=== PATIENT | female | born 1980 | race Caucasian/White ===

== ENCOUNTER → 2016-10-27 | Outpatient (CLI) | payer MEDICARE, OTHER ==
--- NOTE | 2016-10-27 10:51 | US ---
EXAMINATION TYPE: US pelvic complete DATE OF EXAM: 10/27/2016 9:59 AM COMPARISON: No previous CLINICAL HISTORY: Abn Clincial Findings R68.89 Possible Ovarian Cyst. Intermittent left pelvic pain x 1 year, 2, para 2 TECHNIQUE: Transabdominal (TA) Date of LMP: 10/08/2016 EXAM MEASUREMENTS: Uterus: 8.9 x 4.1 x 5.9 cm Endometrial Stripe: 1.0 cm Right Ovary: 3.0 x 1.8 x 3.1 cm Left Ovary: 2.5 x 1.6 x 1.6 cm TECHNOLOGIST IMPRESSION: 1. Uterus: Anteverted, slightly hetergeneous echotexture without any definite lesions seen at this t rosendo, nabothian cyst 2. Endometrium: wnl for patient's menstrual cycle, IUD seen in place 3. Right Ovary: multiple follicles 4. Left Ovary: multiple follicles 5. Bilateral Adnexa: wnl 6. Posterior cul-de-sac: small amount of free fluid An IUCD is noted in normal position within the uterus. IMPRESSION: NORMAL PELVIC ULTRASOUND.
== END | disposition home or self-care (01) ==
LOC: RADUSWWP 09:39
PROVIDERS: ATTEND Obstetrics & Gynecology
DX: R68.89 Other general symptoms and signs (principal)
CPT/HCPCS: 76856

== ENCOUNTER → 2017-01-10 | Outpatient (CLI) | payer MEDICARE, OTHER ==
--- NOTE | 2017-01-10 09:51 | CT ---
EXAMINATION TYPE: CT abdomen pelvis wo con DATE OF EXAM: 01/10/2017 9:27 AM COMPARISON: 03/28/2011 HISTORY: RUQ pain, change in bowel habits CT DLP: 464 mGycm FINDINGS: LUNG BASES: No evidence for nodule. No evidence for infiltrate. LIVER/GB: There is been cholecystectomy. No space-occupying hepatic lesion. PANCREAS: No pancreatic mass identified. No inflammatory process seen. SPLEEN: No evidence for splenomegaly. No intrasplenic lesions seen. ADRENALS: No adrenal nodules identified. No evidence for thickening. KIDNEYS: Stable cystic lesion right kidney measuring 9 mm. No nephrolithiasis. No hydronephrosis. BOWEL: Appendix has a normal appearance. No evidence of bowel obstruction. Suggestion of gastric wall thickening. Correlate clinically. Lymph nodes: No evidence for adenopathy greater than 1 cm. Abdominal aorta: Atheromatous changes seen. No evidence for aneurysm. Genital organs: IUD is in place. No evidence for adnexal mass. Other: No significant abnormality. IMPRESSION: 1. SUGGESTION OF DISTAL GASTRIC WALL THICKENING. CONSIDER UPPER GI OR DIRECT VISUALIZATION.
== END | disposition home or self-care (01) ==
LOC: RADCTMAIN 09:11
PROVIDERS: ATTEND Family Medicine
DX: R10.11 Right upper quadrant pain (principal); R19.4 Change in bowel habit
CPT/HCPCS: 74176

== ENCOUNTER 2017-02-02 09:01 | Day surgery (SDC) | payer MEDICARE, OTHER ==
[2017-02-01 13:23] VITALS: BMI 16.1
[~2017-02-02 09:01] MED LIST: LACTATED RINGERS 1,000 ML IV SCH; LIDOCAINE 1% 20 ML VIAL (10MG/ML) FOR IV START INTRADERMA PRN
[2017-02-02 10:03] VITALS: RESP 18; TEMP 98
[2017-02-02] MEDS ORDERED: LACTATED RINGERS 1,000 ML IV ONE (10:07)
[2017-02-02] MEDS ORDERED: PROPOFOL 10 MG/ML 20 ML VIAL IV ONE (10:21)
--- NOTE | 2017-02-02 10:35 | P.GSHP ---
History of Present Illness H&P Date: 02/02/17 Chief Complaint: Epigastric and right upper quadrant pain, change in bowel habits This is a 36-year-old female referred from Dr. Levy. Patient presents today for EGD colonoscopy. She's had complaints of epigastric port quadrant pain. She is also a change in bowel habits with constipation. - Constitutional Constitutional: Reports as per HPI Past Medical History Past Medical History: Asthma, Fibromyalgia, GERD/Reflux, Osteoarthritis (OA) Additional Past Medical History / Comment(s): currently having alternating constipation,diarrhea,occas heart burn,Hx Carpal Tunnel History of Any Multi-Drug Resistant Organisms: None Reported Past Surgical History: Cholecystectomy Additional Past Surgical History / Comment(s): D&C ,EGD,COLONOSCOPY, LEEP procedure to cervix. Past Anesthesia/Blood Transfusion Reactions: Motion Sickness Additional Past Anesthesia/Blood Transfusion Reaction / Comment(s): no hx blood transfusion Past Psychological History: Anxiety, Bipolar, Depression, Panic Disorder Additional Psychological History / Comment(s): psychosis w/first 9 yrs. ago Smoking Status: Current every day smoker Past Alcohol Use History: Rare Additional Past Alcohol Use History / Comment(s): 1ppd Past Drug Use History: None Reported - Past Family History Father Family Medical History: Liver Disease Additional Family Medical History / Comment(s): Hep C Mother Family Medical History: Cancer Brother(s) Additional Family Medical History / Comment(s): Schizophrenia Medications and Allergies Home Medications Medication Instructions Recorded Confirmed Type Cyclobenzaprine [Flexeril] 10 mg PO TID PRN 12/09/15 02/01/17 History LORazepam [Ativan] 2 mg PO BID PRN 12/09/15 02/02/17 History Albuterol Inhaler [Ventolin Hfa 1 - 2 puff INHALATION Q6HR PRN 03/23/16 History Inhaler] HYDROcodone/APAP 7.5-325MG [[place] 1 tab PO Q6HR PRN 03/23/16 02/02/17 History 7.5-325] Ibuprofen [Motrin] 400 mg PO Q6HR PRN 02/01/17 02/01/17 History Loratadine [Claritin] 10 mg PO DAILY 02/01/17 02/01/17 History Mometasone Furoate [Nasonex Nasal 1 - 2 spray EA NOSTRIL DAILY 02/01/17 History [place]] Allergies Allergy/AdvReac Type Severity Reaction Status Date / Time artifical sweeteners AdvReac Vomiting Uncoded 02/01/17 13:14 Surgical - Exam Vital Signs Temp Pulse Resp BP Pulse Ox 98.0 F 64 18 106/71 98 02/02/17 10:00 02/02/17 10:00 02/02/17 10:00 02/02/17 10:00 02/02/17 10:00 - General well developed, no distress - Eyes PERRL - ENT normal pinna - Neck no masses - Respiratory normal expansion - Cardiovascular Rhythm: regular - Abdomen Mild epigastric tenderness Abdomen: soft Assessment and Plan Plan: Epigastric dull pain, right quadrant pain constipation we'll perform EGD and colonoscopy
--- NOTE | 2017-02-02 10:52 | P.OP ---
Date of Procedure: 02/02/17 Preoperative Diagnosis: Right upper quadrant pain, epigastric pain, constipation Postoperative Diagnosis: Antral gastritis Small hiatal hernia Mild esophagitis Normal colon Procedure(s) Performed: EGD Colonoscopy Implants: Anesthesia: MAC Surgeon: Forrest Florian Pathology: other (Antrum, esophagus) Condition: stable Disposition: PACU Indications for Procedure: Operative Findings: Description of Procedure: PROCEDURE: The patient was placed on the endoscopy table in the lateral position. Digital rectal examination was performed which revealed no abnormalities. Flexible colonoscope was then placed in the patient's anus and passed throughout the entire colon. The ileocecal valve was visualized. The cecum, ascending, transverse, descending and sigmoid colon were normal. The rectum was normal as well. There were no masses, polyps or diverticula noted in the entire colon. Next, the gastroscope was placed oropharynx passed in the esophagus into the stomach. The scope was then placed through the pylorus. The first and second portion of the duodenum appeared normal. Scope was then brought back the antrum and this appeared mildly inflamed. A biopsies performed. The scope was unretroflexed and the remainder of the stomach appeared normal. There was a small hiatal hernia. The GE junction was at 40 cm.. The distal esophagus appeared mildly inflamed a biopsies performed. The proximal esophagus was Normal. Scope was withdrawn for patient.
[2017-02-02 11:24] VITALS: BP 102/66; PULSE 59
== END 2017-02-02 11:38 | disposition home or self-care (01) ==
LOC: ORWHC2ENDO 09:01
PROVIDERS: ATTEND Surgery
DX: K21.0 Gastro-esophageal reflux disease with esophagitis (principal); R19.4 Change in bowel habit; R10.13 Epigastric pain; R10.11 Right upper quadrant pain; K29.50 Unspecified chronic gastritis without bleeding; K44.9 Diaphragmatic hernia without obstruction or gangrene; J45.909 Unspecified asthma, uncomplicated; F17.200 Nicotine dependence, unspecified, uncomplicated; M79.7 Fibromyalgia; Z79.1 Long term (current) use of non-steroidal anti-inflammatories (NSAID); Z79.891 Long term (current) use of opiate analgesic; Z79.899 Other long term (current) drug therapy
CPT/HCPCS: 81025; 88305; 88342; 45378; 43239; J2704

== ENCOUNTER → 2017-06-01 | Outpatient (CLI) | payer MEDICARE, OTHER ==
--- NOTE | 2017-06-01 16:57 | US ---
EXAMINATION TYPE: US pelvic complete DATE OF EXAM: 06/01/2017 COMPARISON: US 10/2016 CLINICAL HISTORY: Z97.[address] Pelvic pain TECHNIQUE: Transabdominal (TA) Date of LMP: 05/21/2017 EXAM MEASUREMENTS: Uterus: 8.2 x 4.2 x 4.0 cm Endometrial Stripe: 0.6 cm Right Ovary: 3.0 x 1.4 x 3.0 cm Left Ovary: 3.3 x 1.9 x 2.6 cm 1. Uterus: Anteverted wnl 2. Endometrium: wnl, IUD visualized and appears in good position 3. Right Ovary: Multiple follicles visualized, wnl 4. Left Ovary: Multiple follicles visualized, largest measuring 1.5 x 1.3 x 1.0 cm 5. Bilateral Adnexa: wnl 6. Posterior cul-de-sac: wnl IMPRESSION: Negative exam. IUD is in good position.
== END | disposition home or self-care (01) ==
LOC: RADUSWWP 16:12
PROVIDERS: ATTEND Obstetrics & Gynecology
DX: Z09 Encounter for follow-up examination after completed treatment for conditions other than malignant neoplasm (principal); Z97.5 Presence of (intrauterine) contraceptive device
CPT/HCPCS: 76856

== ENCOUNTER → 2017-11-24 | Outpatient (CLI) | payer MEDICARE, OTHER ==
--- NOTE | 2017-11-25 10:28 | XR ---
Abdomen HISTORY: Pain Frontal view of the abdomen submitted, comparison to CT abdomen pelvis 01/10/2017 Lung bases are clear. There is no evident bowel obstruction or pneumoperitoneum. There is a mild spin al curvature. Surgical clips are present in the right upper quadrant. The entire pelvis is not includ ed on the exam. No evident pathologic calcification. IMPRESSION: Nonobstructive bowel gas pattern, limitations as described
== END ==
LOC: RADXRMAIN 16:16
PROVIDERS: ATTEND Family Medicine
DX: R10.0 Acute abdomen (principal)
CPT/HCPCS: 74018

== ENCOUNTER → 2018-02-08 | Outpatient (CLI) | payer MEDICARE, OTHER ==
--- NOTE | 2018-02-08 18:28 | BD ---
EXAMINATION TYPE: Axial Bone Density DATE OF EXAM: 02/08/2018 CLINICAL HISTORY: : no Height: 65 inches Weight: 95 pounds FRAX RISK QUESTIONS: Alcohol (3 or more units per day): no Family History (Parent hip fracture): no Glucocorticoids (More than 3mos): yes, inhaler...rarely uses (Ex: prednisone, prednisolone, methylprednisolone, dexamethasone, and hydrocortisone). History of Fracture in Adulthood: no Secondary Osteoporosis: 1. Type 1 Diabetes: no 2. Hyperthyroidism: no 3. Menopause before 45: n/a 4. Malnutrition: thin 5. Chronic liver disease: no Rheumatoid Arthritis: no Current Tobacco Use: yes RISK FACTORS HISTORY OF: Family History of Osteoporosis: no Active: no Diet low in dairy products/other sources of calcium: no Postmenopausal woman: no If Premenopausal, do you have irregular periods: no Take estrogen and/or progesterone medications: no Lost more than 2 inches in height since high school: no Frequent falls: no Poor Health: no Hyperparathyroidism: no Adrenal Insufficiency: no MEDICATIONS: Prednisone or other steroids: inhaler....very rarely How Long: about 15 years Thyroid Medications: no Osteoporosis Medications:no Additional History: low vitamin D; thin body habitus; EXAM MEASUREMENTS: Bone mineral densitometry was performed using the nTAG Interactive System. Bone mineral density as measured about the Lumbar spine is: ----- L1-L4(G/cm2): 0.979 T Score Values are as follows: ----- L2: -1.8 ----- L3: -1.6 ----- L4: -1.5 ----- L1-L4: -1.7 Bone mineral density BASELINE Bone mineral density about the R hip (g/cm2): 0.858 Bone mineral density about the L hip (g/cm2): 0.877 T Score values are as follows: -----R Neck: -1.3 -----L Neck: -1.2 -----R Total: -1.7 -----L Total: -1.6 Bone mineral density BASELINE IMPRESSION: Osteopenia (T Score between -2.5 and -1). There is slightly increased risk of fracture and the patient may be considered for treatment. Re-Screen 2-5 years. NOTE: T-SCORE=SD OF THE YOUNG ADULT MEAN.
== END | disposition home or self-care (01) ==
LOC: RADBDWWP 08:58
PROVIDERS: ATTEND Family Medicine
DX: M85.80 Other specified disorders of bone density and structure, unspecified site (principal)
CPT/HCPCS: 77080

== ENCOUNTER → 2018-04-11 | Outpatient (CLI) | payer MEDICARE, OTHER ==
[2018-04-11 16:58] LABS: Blood Urea Nitrogen 12 mg/dL (7-17)
--- NOTE | 2018-04-11 20:31 | CT ---
EXAMINATION TYPE: CT brain wo/w con DATE OF EXAM: 04/11/2018 COMPARISON: Prior MRI brain June 28, 2012. HISTORY: NEAR SYNCOPE WITH DIZZINESS and headache. CT DLP: 2017.7 mGycm Automated Exposure Control for Dose Reduction was Utilized. TECHNIQUE: CT scan of the head is performed without and with IV Contrast, patient injected with 100 m L of Isovue 300. FINDINGS: Noncontrast images show no acute intracranial hemorrhage or midline shift. The ventricles and sulci are within normal limits in size. Proctor-white matter differentiation is maintained. Postcon trast images show no suspicious enhancing intraparenchymal mass. The globes are intact and the visual ized sinuses are clear. No suspicious fluid signal is seen in mastoid air cells bilaterally. IMPRESSION: Unremarkable study. No significant change from prior MRI to account for patient's symptom s.
== END | disposition home or self-care (01) ==
LOC: RADCTMAIN 16:25
PROVIDERS: ATTEND Family Medicine
DX: R55 Syncope and collapse (principal); R51 Headache
CPT/HCPCS: 82565; 84520; 70470; 36415; Q9967

== ENCOUNTER → 2018-06-02 | Outpatient (CLI) | payer MEDICARE, OTHER ==
--- NOTE | 2018-06-03 13:45 | MR ---
EXAMINATION TYPE: MR brain wo con DATE OF EXAM: 06/02/2018 COMPARISON: CT brain 04/23/2018, MRI 06/28/2012 HISTORY: tunnel vision Previous MRI on PACS CONTRAST: Performed utilizing 0 mL intravenous Gadavist gadolinium contrast. TECHNIQUE: Multiplanar, multiecho imaging on a 3.0 Cami magnet is performed through the brain. Stud y is performed within 24 hours of arrival to the hospital. The craniovertebral junction is normal. The pituitary is normal. Diffusion-weighted imaging is performed. No abnormal hyperintensity is present to suggest an acute i ntracranial infarct or acute ischemic change. There is some mild periventricular white matter hyperintensity on T2 and inversion recovery weighted sequences which is nonspecific and similar to prior study. Intravascular ischemic change and multiple sclerosis could be considered. This is similar to the prior study. Ventricles and sulci are appropriate for the patient age. Globes are symmetrical. Intraconal and extraconal fat is normal as visualized. Optic nerves as visual ized are normal. The optic chiasm is visualized is normal. IMPRESSIONS: 1. Stable MRI brain. No suspicious acute changes.
== END ==
LOC: RADMRIMAIN 11:45
PROVIDERS: ATTEND Family Medicine
DX: H53.8 Other visual disturbances (principal); G44.009 Cluster headache syndrome, unspecified, not intractable; R55 Syncope and collapse
CPT/HCPCS: 70551

== ENCOUNTER → 2018-12-18 | Outpatient (CLI) | payer MEDICARE, OTHER ==
--- NOTE | 2018-12-18 16:16 | US ---
EXAMINATION TYPE: US pelvis complete transvag DATE OF EXAM: 12/18/2018 COMPARISON: CT US 2017 CLINICAL HISTORY: N92.0 Menorrhagia. Menorrhagia. Very heavy vaginal bleeding. Hx ovarian cyst. D and C. IUD in place. TECHNIQUE: Transvaginal (TV) and Transabdominal (TA) . Transabdominal sonographic images of the pel vis were acquired. Transvaginal sonographic images were medically necessary to better assess the fol lowing anatomy: Ovaries. Date of LMP: 12/13/2018 EXAM MEASUREMENTS: Uterus: 7.9 x 7.0 x 5.2 cm Endometrial Stripe: 0.63 cm Right Ovary: 3.0 x 2.1 x 1.5 cm Left Ovary: Not visualized due to overlying bowel. cm 1. Uterus: Anteverted IUD in place in upper endometrium. Anechoic area seen cervix. 2. Endometrium: Thickness wnl for day 6 LMP. IUD seen upper endometrium/ 3. Right Ovary: Anechoic areas seen. Largest measures: 0.7 x 0.7 x 0.8 cm. 4. Left Ovary: Not visualized. Spectral, color and waveform doppler imaging shows good arterial and venous flow within the right o vary; there is no evidence for ovarian torsion of the right ovary. Left ovary obscured by bowel. 5. Bilateral Adnexa: wnl 6. Posterior cul-de-sac: wnl Tech: NW IMPRESSION: 1. IUD within the endometrial canal of uterus. 2. Nabothian cyst versus small amount of fluid within the cervical os. 3. Follicles on the right ovary
== END | disposition home or self-care (01) ==
LOC: RADUSWWP 14:04
PROVIDERS: ATTEND Family Medicine
DX: N92.0 Excessive and frequent menstruation with regular cycle (principal); Z97.5 Presence of (intrauterine) contraceptive device
CPT/HCPCS: 76830; 76856; 93976

== ENCOUNTER → 2019-02-26 | Outpatient (CLI) | payer MEDICARE, OTHER ==
[2019-02-26 22:41] LABS: ACTH 17.3 pg/mL (0.00-45.99)
== END | disposition home or self-care (01) ==
LOC: LABWHC1 09:07
PROVIDERS: ATTEND Internal Medicine Endocrinology, Diabetes & Metabolism
DX: R53.83 Other fatigue (principal)
CPT/HCPCS: 36415; 82024; 82533; 82607; 84146

== ENCOUNTER → 2019-04-11 | Outpatient (CLI) | payer MEDICARE, OTHER ==
--- NOTE | 2019-04-11 12:30 | CT ---
EXAMINATION TYPE: CT abdomen wo con DATE OF EXAM: 04/11/2019 COMPARISON: 01/10/2017 HISTORY: RLQ pain CT DLP: 118.8 mGycm Automated exposure control for dose reduction was used. TECHNIQUE: Helical acquisition of images was performed from the lung bases through the top of iliac crest to include entire abdomen. CONTRAST: Performed with Oral Contrast and 100 cc of Isovue 300. FINDINGS: LUNG BASES: No significant abnormality is appreciated. LIVER/GB: Postcholecystectomy changes are noted. PANCREAS: No significant abnormality is seen. SPLEEN: No significant abnormality is seen. ADRENALS: No significant abnormality is seen. KIDNEYS: There is a stable 8 mm hypoechoic nodule within the right kidney measures 33 Hounsfield unit s and is not compatible with a simple cyst. Its size is similar to the prior exam. Extrarenal pelvis on the right noted. BOWEL: Bowel gas pattern nonspecific with no obstruction. Small hiatal hernia suggested. LYMPH NODES: No significant abnormality is appreciated. OSSEOUS STRUCTURES: No osseous abnormality identified. OTHER: Aorta of normal caliber. Intrauterine device noted. IMPRESSION: 1. Stable 9 mm right renal lesion measures approximately 33 Hounsfield units and is not compatible wi th a simple cyst. Its size is stable compared to the prior exam. Follow-up MRI could BE obtained. Cor relate clinically. 2. Extrarenal pelvis favored over mild right-sided hydronephrosis correlate clinically
--- NOTE | 2019-04-12 10:47 | CT ---
EXAMINATION TYPE: CT abdomen pelvis w con DATE OF EXAM: 04/11/2019 HISTORY: RLQ pain CT DLP: 312.7mGycm Automated Exposure Control for Dose Reduction was Utilized. CONTRAST: CT scan of the abdomen and pelvis is performed with IV Contrast, patient injected with 100 mL of Isov ue 300. COMPARISON: CT abdomen from earlier today FINDINGS: LUNG BASES: No significant abnormality is appreciated. LIVER/GB: Cholecystectomy clips are redemonstrated. PANCREAS: No significant abnormality is seen. SPLEEN: No significant abnormality is seen. ADRENALS: No significant abnormality is seen. KIDNEYS: Postcontrast images show symmetric cortical medullary uptake and excretion from both kidneys without hydronephrosis seen bilaterally. Roughly 1.0 cm low dense lesion lower pole level right kidn ey shows no suspicious enhancement seen best delayed series 7 image 27 consistent with simple thin-wa lled cyst. No additional suspicious solid or cystic renal mass is present. Normal excretion is seen b ilaterally with extrarenal pelvis on the right redemonstrated. BOWEL: Patient is very little abdominal fat making evaluation slightly suboptimal. No suspicious sma ll large bowel dilatation. UTERUS/ADNEXA: Anteverted uterus with central metallic IUD. LYMPH NODES: No greater than 1cm abdominal or pelvic lymph nodes are appreciated. OSSEOUS STRUCTURES: No significant abnormality is seen. OTHER: No significant additional abnormality is seen. IMPRESSION: Lesion of concern right kidney shows no suspicious enhancement or nodularity. Lesion is p resumed benign.
== END | disposition home or self-care (01) ==
LOC: RADCTMAIN 10:11
PROVIDERS: ATTEND Family Medicine
DX: N28.1 Cyst of kidney, acquired (principal); N28.9 Disorder of kidney and ureter, unspecified; N13.30 Unspecified hydronephrosis
CPT/HCPCS: 74150; 74177; Q9967

== ENCOUNTER → 2019-05-08 | Outpatient (CLI) | payer MEDICARE, OTHER ==
[2019-05-08 07:51] LABS: Anisocytosis Slight; Basophils % (A) 1 %; Eosinophils # (A) 0.1 k/uL (0-0.7); Eosinophils % (A) 2 %; HCT 33.7 % (34.0-46.0); Lymphocytes # (A) 1.8 k/uL (1.0-4.8); Lymphocytes % (A) 38 %; MCH 28.1 pg (25.0-35.0); MCHC 32.5 g/dL (31.0-37.0); MCV 86.3 fL (80.0-100.0); Mean Platelet Volume 6.9; Monocytes # (A) 0.4 k/uL (0-1.0); Monocytes % (A) 8 %; Neutrophils # (A) 2.3 k/uL (1.3-7.7); Neutrophils % (A) 48 %; Platelet Count 250 k/uL (150-450); RBC 3.91 m/uL (3.80-5.40); RDW 16.1 % (11.5-15.5); WBC 4.8 k/uL (3.8-10.6)
== END | disposition home or self-care (01) ==
LOC: LABPAT 07:08
PROVIDERS: ATTEND Surgery
DX: Z01.812 Encounter for preprocedural laboratory examination (principal); K21.0 Gastro-esophageal reflux disease with esophagitis
CPT/HCPCS: 36415; 85025

== ENCOUNTER 2019-05-13 10:57 | Observation (INO) | payer MEDICARE, OTHER ==
[~2019-05-13 10:57] MED LIST changes: +DEXAMETHASONE SOD PHOSPHATE 10 MG/ML 1 ML VIAL IV ONE; +HEPARIN SODIUM,PORCINE 5,000 UNIT/ML 1 ML VIAL SQ ONE; -LACTATED RINGERS 1,000 ML IV SCH; -LIDOCAINE 1% 20 ML VIAL (10MG/ML) FOR IV START INTRADERMA PRN; +MIDAZOLAM 2 MG/2 ML VIAL IV PRN; +ONDANSETRON 4 MG/2 ML VIAL IVP ONE; +SCOPOLAMINE 1.5MG/72HR PATCH TRANSDERM ONE
--- NOTE | 2019-05-13 11:38 | P.GSHP ---
History of Present Illness H&P Date: 05/13/19 Chief Complaint: GERD This is a 3-year-old female referred from Dr. Levy. MThe patient has had long-standing problems with reflux esophagitis. The patient underwent recent EGD is found have evidence of esophagitis. Patient has been well informed on the procedure of laparoscopic Adi fundoplication. The patient is aware the risk of the conversion to the open procedure, risk of injury to the stomach, liver and spleen. The patient is also a risk of recurrent GERD and dysphagia symptoms. The patient understands there is a postoperative diet of full liquids for 2 weeks after surgery. Past Medical History Past Medical History: Asthma, Fibromyalgia, GERD/Reflux, Osteoarthritis (OA) Additional Past Medical History / Comment(s): currently having alternating constipation,diarrhea,occas heart burn,Hx Carpal Tunnel, hx ITP History of Any Multi-Drug Resistant Organisms: None Reported Past Surgical History: Cholecystectomy, Hernia Repair Additional Past Surgical History / Comment(s): D&C ,EGD,COLONOSCOPY, LEEP procedure to cervix, incisional hernia repair with mesh Past Anesthesia/Blood Transfusion Reactions: Motion Sickness Additional Past Anesthesia/Blood Transfusion Reaction / Comment(s): no hx blood transfusion Past Psychological History: Anxiety, Bipolar, Depression, Panic Disorder Additional Psychological History / Comment(s): psychosis w/first 9 yrs. ago Smoking Status: Former smoker Past Alcohol Use History: Rare Additional Past Alcohol Use History / Comment(s): 1ppd off and on for 15 years quit 04/26/19 Past Drug Use History: None Reported - Past Family History Father Family Medical History: Liver Disease Additional Family Medical History / Comment(s): Hep C Mother Family Medical History: Cancer Brother(s) Additional Family Medical History / Comment(s): Schizophrenia Medications and Allergies Home Medications Medication Instructions Recorded Confirmed Type Cyclobenzaprine [Flexeril] 10 mg PO TID PRN 12/09/15 05/03/19 History LORazepam [Ativan] 2 mg PO BID PRN 12/09/15 05/13/19 History Albuterol Inhaler [Ventolin Hfa 1 - 2 puff INHALATION Q6HR PRN 03/23/16 05/03/19 History Inhaler] HYDROcodone/APAP 7.5-325MG [[place] 1 tab PO Q6HR PRN 03/23/16 05/03/19 History 7.5-325] Ibuprofen [Motrin] 400 mg PO Q6HR PRN 02/01/17 05/13/19 History Loratadine [Claritin] 10 mg PO DAILY 02/01/17 05/03/19 History Mometasone Furoate [Nasonex Nasal 1 - 2 spray EA NOSTRIL DAILY 02/01/17 05/03/19 History [place]] Ergocalciferol (Vitamin D2) 50,000 unit PO MO 05/03/19 05/03/19 History [Vitamin D2] Pedi Multivit No.25/Folic Acid 1 tab PO DAILY 05/03/19 05/03/19 History [[place] Multivit Chew Tab] Varenicline [Chantix Starter Pack] 0.5 mg PO DAILY 05/03/19 05/03/19 History Acetaminophen [Tylenol] 325 mg PO Q4H PRN 05/13/19 05/13/19 History Allergies Allergy/AdvReac Type Severity Reaction Status Date / Time artifical sweeteners AdvReac Vomiting Uncoded 05/08/19 10:35 Surgical - Exam Vital Signs Temp Pulse Resp BP Pulse Ox 97.4 F L 66 18 96/52 98 05/13/19 11:21 05/13/19 11:21 05/13/19 11:21 05/13/19 11:21 05/13/19 11:21 - General well developed, no distress - Eyes PERRL - ENT normal pinna - Neck no masses - Respiratory normal expansion - Cardiovascular Rhythm: regular - Abdomen Abdomen: soft, non tender Assessment and Plan Assessment: GERD. We'll perform laparoscopic Adi fundal plication.
[2019-05-13] MEDS: LACTATED RINGERS 1,000 ML IV SCH ×2 (11:41→23:04)
[2019-05-13] MEDS ORDERED: LIDOCAINE 1% 20 ML VIAL (10MG/ML) FOR IV START INTRADERMA ONE (11:42)
[2019-05-13] MEDS ORDERED: ROCURONIUM BROMIDE 10 MG/ML 10 ML VIAL IV ONE (12:11)
[2019-05-13] MEDS ORDERED: LIDOCAINE 1% INJ 10MG/ML (20 ML MDV) ONE (12:11)
[2019-05-13] MEDS ORDERED: GLYCOPYRROLATE 0.2 MG/ML 2 ML VIAL ONE (12:11)
[2019-05-13] MEDS ORDERED: .MORPHINE SULFATE (INJ) 10 MG/ML SYRINGE ONE (12:11)
[2019-05-13] MEDS ORDERED: SUCCINYLCHOLINE CHLORIDE 100 MG/5 ML SYR IV ONE (12:11)
[2019-05-13] MEDS ORDERED: MIDAZOLAM 2 MG/2 ML VIAL ONE (12:11)
[2019-05-13] MEDS ORDERED: PROPOFOL 10 MG/ML 20 ML VIAL IV ONE (12:11)
[2019-05-13] MEDS ORDERED: NEOSTIGMINE 1 MG/ML 10 ML VIAL ONE (12:11)
[2019-05-13] MEDS ORDERED: fentaNYL (PF) 50 MCG/ML 2 ML AMP ONE (12:11)
[2019-05-13] MEDS ORDERED: LACTATED RINGERS 1,000 ML IV ONE (12:52)
--- NOTE | 2019-05-13 13:06 | P.OP ---
Date of Procedure: 05/13/19 Preoperative Diagnosis: GERD Postoperative Diagnosis: GERD Procedure(s) Performed: Laparoscopic Adi fundal plication Anesthesia: ZOE Surgeon: Forrest Florian Estimated Blood Loss (ml): 5 Pathology: none sent Condition: stable Disposition: PACU Description of Procedure: HThe patient was placed on the operating table in the supine position. The patient received general anesthesia. And was placed in dorsal lithotomy position. The patient was prepped and draped in the usual sterile fashion. The skin incision sites were anesthetized with 1% local Xylocaine. The skin was incised in the left periumbilical area and then using a blade less 5 mm trocar under direct visualization panel cavity was entered. After adequate insufflation the laparoscope was then placed into the peritoneal cavity. Next a 5 mm trochars placed in the right epigastric position. Another 5 millimeter trocar the right lateral position. Another 5 millimeter trocar in the left lateral position a 5 mm trocar is placed in the left epigastric position. And then the initial 5 mm trocar was exchanged for a 10 mm trocar. The left lateral lobe liver was retracted. The hernia was seen. The crural defect was then dissected using the Harmonic scissors device. A 360 crural dissection was performed the esophagus stomach was reduced back into the peritoneal Cavity. The crural defect was then closed using 2-0 Ethibond suture. Next the fundus of the stomach was mobilized using the Elbert scissors device. and then a 58- [place]guill[place] bougie dilator was placed oropharynx passed into the esophagus and stomach the fundal plication wrap was then performed by grasping the fundus post eriorly and bringing it around the esophagus and stomach fundoplication was then performed using 2-0 Ethibond suture. Care was taken that the fundal location rested over top of the intra-abdominal esophagus. There was no injury seen to the stomach or esophagus. The dilator was then withdrawn. The abdomen was irrigated there is no bleeding seen. The trochars were then withdrawn and then skin incision sites were closed using 3-0 Monocryl suture Steri-Strips are applied. Patient thought procedure well and sent to recovery room in stable condition. The patient's found have right inguinal hernia
[2019-05-13] MEDS ORDERED: KETOROLAC 30 MG/ML 1 ML VIAL IVP ONE (13:13)
[2019-05-13] MEDS ORDERED: CYCLOBENZAPRINE 10 MG TAB PO PRN (13:21)
[2019-05-13] MEDS ORDERED: ACETAMINOPHEN TAB 325 MG TAB PO PRN (13:21)
[2019-05-13] MEDS ORDERED: LORazepam 1 MG TAB PO PRN (13:23)
[2019-05-13] MEDS ORDERED: MEPERIDINE 50 MG/ML SYRINGE IVP ONE ×2 (13:49→14:05)
[2019-05-13] MEDS: HYDROmorphone 1 MG/ML 1 ML SYRINGE IVP PRN (17:25)
[2019-05-13 17:28] VITALS: BMI 16.1
[2019-05-13] MEDS: HYDROmorphone 0.5 MG/0.5 ML SYRINGE IVP PRN (21:08)
[2019-05-13] MEDS: D5-0.45% NACL WITH KCL 20MEQ/L 1,000 ML IV SCH ×2 (22:22→23:03)
[2019-05-14] MEDS: HYDROmorphone 0.5 MG/0.5 ML SYRINGE IVP PRN ×2 (00:32→05:42)
[2019-05-14] MEDS: D5-0.45% NACL WITH KCL 20MEQ/L 1,000 ML IV SCH ×3 (06:02→20:50)
[2019-05-14] MEDS: ENOXAPARIN 40 MG/0.4 ML SYRINGE SQ SCH (08:28)
[2019-05-14] MEDS: LORATADINE 10 MG TAB PO SCH (08:28)
[2019-05-14] MEDS: VARENICLINE 0.5 MG TAB PO SCH (08:28)
[2019-05-14 08:34] LABS: Anisocytosis Slight; Basophils % (A) 1 %; Eosinophils # (A) 0.1 k/uL (0-0.7); Eosinophils % (A) 1 %; HCT 33.3 % (34.0-46.0); HGB 10.8 gm/dL (11.4-16.0); Lymphocytes % (A) 27 %; MCH 28.4 pg (25.0-35.0); MCHC 32.3 g/dL (31.0-37.0); MCV 87.8 fL (80.0-100.0); Mean Platelet Volume 7.1; Monocytes # (A) 0.6 k/uL (0-1.0); Monocytes % (A) 8 %; Neutrophils # (A) 4.8 k/uL (1.3-7.7); Neutrophils % (A) 63 %; Platelet Count 220 k/uL (150-450); RDW 16.2 % (11.5-15.5); WBC 7.6 k/uL (3.8-10.6)
[2019-05-14 08:42] LABS: African American GFR (CKD) >90 (>60 ml/min/1.73 sqM); Anion Gap 4 mmol/L; Blood Urea Nitrogen 8 mg/dL (7-17); Calcium 8.9 mg/dL (8.4-10.2); Carbon Dioxide 32 mmol/L (22-30); Chloride 104 mmol/L (98-107); Glucose 112 mg/dL (74-99); Potassium 4.1 mmol/L (3.5-5.1); Sodium 140 mmol/L (137-145)
--- NOTE | 2019-05-14 08:53 | FL ---
EXAMINATION TYPE: FL esophagus cervic/pharynx DATE OF EXAM: 05/14/2019 LIMITED UGI-ESOPHAGRAM: CLINICAL HISTORY: History of hiatal hernia and reflux per patient status post Kwame fundoplication surgery one day earlier. TECHNIQUE: Limited esophagram is performed utilizing 50 oz of Isovue. A total of 47 seconds of fluor oscopic time was utilized during procedure. 16 spot images are saved to PACS. Comparison: CT abdomen and pelvis April 11, 2019 FINDINGS: The patient swallowed contrast without difficulty or delay. Esophageal peristalsis and mo tility are within normal limits. There is good flow of contrast along the diaphragmatic hiatus into t he stomach, there is no evidence of contrast extravasation to suggest leak. No hiatal hernia is seen. Patient some increased nausea after drinking contrast. Pneumoperitoneum below right and left diaphra gm is identified. Cholecystectomy clips are redemonstrated. IMPRESSION: No evidence of leak or significant obstruction status post Kwame fundoplication surgery yesterday.
[2019-05-14] MEDS: HYDROmorphone 1 MG/ML 1 ML SYRINGE IVP PRN (10:56)
--- NOTE | 2019-05-14 12:05 | P.PN ---
Subjective Progress Note Date: 05/14/19 CHIEF COMPLAINT: GERD HISTORY OF PRESENT ILLNESS: patient is status post laparoscopic Adi fundoplication. Esophagram completed postoperatively negative for leak or obstruction. Patient examined this morning's bedside. She reports mild nausea. She has been tolerating liquids. We without difficulty. She has been up ambulating to the bathroom. Vital signs stable. She is afebrile. PHYSICAL EXAM: VITAL SIGNS: Reviewed. GENERAL: Well-developed in no acute distress. HEENT: No sclera icterus. Extraocular movements grossly intact. Moist buccal mucosa. Head is atraumatic, normocephalic. ABDOMEN: Soft. Nondistended. laparoscopic surgical sites clean dry and intact without drainage or signs of infection NEUROLOGIC: Alert and oriented. Cranial nerves II through XII grossly intact. ASSESSMENT: 1. GERD, s/p laparoscopic Adi fundoplication PLAN: 1. Continue Adi clear liquid diet. Do not advance 2. Pain control. Patient is receiving IV dilaudid but has not received any No rco. Patient to receive [place] for pain. Dilaudid to be used only if [place] is not controlling her pain 3. Increase activity 4. Incentive spirometry 5. Patient states she is not ready for DC today. Will hold discharge today. Plan for DC home tomorrow. Nurse practitioner note has been reviewed by physician. Signing provider agrees with the documented findings, assessment, and plan of care. Objective - Vital Signs Vital signs: Vital Signs Temp 98.5 F 05/14/19 04:35 Pulse 61 05/14/19 04:35 Resp 20 05/14/19 08:00 BP 96/60 05/14/19 04:35 Pulse Ox 99 05/14/19 04:35 Intake & Output 05/13/19 05/14/19 05/14/19 18:59 06:59 18:59 Intake Total 1770 300 Output Total 10 Balance 1760 300 Weight 45.359 kg 45.359 kg Intake: IV 1650 Oral 120 300 Output: Estimated Blood Loss 10 Other: # Voids 2 1 - Labs CBC & Chem 7: 05/14/19 08:05 05/14/19 08:05 Labs: Abnormal Lab Results - Last 24 Hours (Table) 05/14/19 05/14/19 Range/Units 08:05 08:05 Hgb 10.8 L (11.4-16.0) gm/dL Hct 33.3 L (34.0-46.0) % RDW 16.2 H (11.5-15.5) % Carbon Dioxide 32 H (22-30) mmol/L Glucose 112 H (74-99) mg/dL
[2019-05-14] MEDS ORDERED: HYDROmorphone 0.5 MG/0.5 ML SYRINGE IVP PRN (13:58)
[2019-05-14] MEDS: HYDROcodone/APAP 7.5-325MG 1 EACH TAB PO PRN (18:22)
[2019-05-15] MEDS: HYDROcodone/APAP 7.5-325MG 1 EACH TAB PO PRN ×2 (01:16→08:28)
[2019-05-15] MEDS: D5-0.45% NACL WITH KCL 20MEQ/L 1,000 ML IV SCH (04:11)
[2019-05-15] MEDS: LACTATED RINGERS 1,000 ML IV SCH (04:12)
[2019-05-15 05:43] VITALS: BP 120/74; PULSE 53; RESP 16; TEMP 98.6
[2019-05-15] MEDS: VARENICLINE 0.5 MG TAB PO SCH (08:25)
[2019-05-15] MEDS: ENOXAPARIN 40 MG/0.4 ML SYRINGE SQ SCH (08:26)
[2019-05-15] MEDS: LORATADINE 10 MG TAB PO SCH (08:26)
--- NOTE | 2019-05-15 10:17 | P.DS ---
Providers Date of admission: 05/14/19 15:50 Expected date of discharge: 05/15/19 Attending physician: Forrest Florian Primary care physician: [facility] Course: 38 year old female who is status post laparoscopic Adi fundoplication. Esophagram completed postoperatively negative for leak or obstruction. Patient is a well postoperatively without any immediate complications. She is tolerating liquid diet. Pain controlled on oral medications. Patient is stable for discharge home today. Please see EMR for further hospital course details. Discharge Diagnosis: 1. GERD, s/p laparoscopic Adi fundoplication Nurse practitioner note has been reviewed by physician. Signing provider agrees with the documented findings, assessment, and plan of care. Patient Condition at Discharge: Stable Plan - Discharge Summary Discharge Rx Participant: Yes New Discharge Prescriptions: New Hydrocodone/Acetaminophen [[place] 5-325] 1 tab PO Q6HR PRN 3 Days #12 tab PRN Reason: Pain Continue LORazepam [Ativan] 2 mg PO BID PRN PRN Reason: Anxiety Cyclobenzaprine [Flexeril] 10 mg PO TID PRN PRN Reason: muscle relaxant Albuterol Inhaler [Ventolin Hfa Inhaler] 1 - 2 puff INHALATION Q6HR PRN PRN Reason: asthma Mometasone Furoate [Nasonex Nasal [place]] 1 - 2 spray EA NOSTRIL DAILY Loratadine [Claritin] 10 mg PO DAILY Ibuprofen [Motrin] 400 mg PO Q6HR PRN PRN Reason: Pain Varenicline [Chantix Starter Pack] 0.5 mg PO DAILY Pedi Multivit No.25/Folic Acid [Flintstones Multivit Chew Tab] 1 tab PO DAILY Ergocalciferol (Vitamin D2) [Vitamin D2] 50,000 unit PO MO Acetaminophen [Tylenol] 325 mg PO Q4H PRN PRN Reason: Headache Discontinued HYDROcodone/APAP 7.5-325MG [[place] 7.5-325] 1 tab PO Q6HR PRN PRN Reason: Pain Discharge Medication List Cyclobenzaprine [Flexeril] 10 mg PO TID PRN 12/09/15 [History] LORazepam [Ativan] 2 mg PO BID PRN 12/09/15 [History] Albuterol Inhaler [Ventolin Hfa Inhaler] 1 - 2 puff INHALATION Q6HR PRN 03/23/16 [History] Ibuprofen [Motrin] 400 mg PO Q6HR PRN 02/01/17 [History] Loratadine [Claritin] 10 mg PO DAILY 02/01/17 [History] Mometasone Furoate [Nasonex Nasal [place]] 1 - 2 spray EA NOSTRIL DAILY 02/01/17 [History] Ergocalciferol (Vitamin D2) [Vitamin D2] 50,000 unit PO MO 05/03/19 [History] Pedi Multivit No.25/Folic Acid [[place]stones Multivit Chew Tab] 1 tab PO DAILY 05/03/19 [History] Varenicline [Chantix Starter Pack] 0.5 mg PO DAILY 05/03/19 [History] Acetaminophen [Tylenol] 325 mg PO Q4H PRN 05/13/19 [History] Hydrocodone/Acetaminophen [[place] 5-325] 1 tab PO Q6HR PRN 3 Days #12 tab 05/15 [Rx] Follow up Appointment(s)/Referral(s): Heath Levy DO [Primary Care Provider] - 1 Week (office will call ) Forrest Florian MD [STAFF PHYSICIAN] - 05/28/19 2:10 pm Patient Instructions/Handouts: *Surgery [facility] - (Anival & Sherri) Lap Adi Fundiplication Post-Op Instructions Activity/Diet/Wound Care/Special Instructions: No driving while taking [place] No lifting over 10 pounds You may shower. No soaking or tub baths Very light activity until you are reevaluated at your follow up appointment with your surgeon Full liquid diet for 2 weeks
== END 2019-05-15 11:03 | disposition home or self-care (01) ==
LOC: OR 10:57 → 6PED 13:08 → 4MS4W 20:08 → OR 05-14 15:50
PROVIDERS: ADMIT Surgery; ATTEND Surgery
DX: K21.0 Gastro-esophageal reflux disease with esophagitis (principal); J45.909 Unspecified asthma, uncomplicated; M79.7 Fibromyalgia; M19.90 Unspecified osteoarthritis, unspecified site; K59.00 Constipation, unspecified; R19.7 Diarrhea, unspecified; D69.3 Immune thrombocytopenic purpura; F41.9 Anxiety disorder, unspecified; F31.9 Bipolar disorder, unspecified; F41.0 Panic disorder [episodic paroxysmal anxiety]; Z90.49 Acquired absence of other specified parts of digestive tract; Z87.891 Personal history of nicotine dependence; Z79.891 Long term (current) use of opiate analgesic; Z79.1 Long term (current) use of non-steroidal anti-inflammatories (NSAID); Z91.02 Food additives allergy status; Z79.899 Other long term (current) drug therapy; Z81.8 Family history of other mental and behavioral disorders; Z80.9 Family history of malignant neoplasm, unspecified; Z83.79 Family history of other diseases of the digestive system
CPT/HCPCS: 81025; 80048; 85025; 74210; 43280; G0378 ×2; J2250; J1644; J1100; J2710; J2175; J2270; J0690; J2405; J2001; J1650 ×2; J3010; J1885; J1170 ×4; J0330; J2704; Q9967; 86850; 86900; 86901

== ENCOUNTER → 2019-06-11 | Outpatient (CLI) | payer MEDICARE, OTHER | END | disposition home or self-care (01) | LOC: PROCWHC3 15:21 | PROVIDERS: ATTEND Family Medicine | DX: J10.1 Influenza due to other identified influenza virus with other respiratory manifestations (principal) | CPT/HCPCS: 87502 ==

== ENCOUNTER → 2019-08-08 | Outpatient (CLI) | payer MEDICARE, OTHER ==
--- NOTE | 2019-08-08 15:58 | XR ---
EXAMINATION TYPE: XR chest 2V DATE OF EXAM: 08/08/2019 COMPARISON: NONE TECHNIQUE: PA and lateral views submitted. HISTORY: Productive cough FINDINGS: The lungs are clear and there is no pneumothorax, pleural effusion, or focal pneumonia. Biapical pl eural thickening. Mild prominence of the region of the left atrial appendage. IMPRESSION: 1. No acute infiltrate. Recommend short-term follow-up CT scan to assess the left perihilar region an d retrosternal location..
== END | disposition home or self-care (01) ==
LOC: RADXRMAIN 15:02
PROVIDERS: ATTEND Family Medicine
DX: R05 Cough (principal)
CPT/HCPCS: 71046

== ENCOUNTER 2019-09-10 07:39 | Day surgery (SDC) | payer MEDICARE, OTHER ==
[2019-09-05 14:10] VITALS: BMI 16.1
[~2019-09-10 07:39] MED LIST changes: +LIDOCAINE 1% 20 ML VIAL (10MG/ML) FOR IV START INTRADERMA PRN; -ONDANSETRON 4 MG/2 ML VIAL IVP ONE
[2019-09-10 08:36] VITALS: RESP 16
--- NOTE | 2019-09-10 08:36 | P.GSHP ---
History of Present Illness H&P Date: 09/10/19 Chief Complaint: Right inguinal hernia 's is 31-year-old female. History of right inguinal hernia. Patient rents today for laparoscopic robotic system repair. Past Medical History Past Medical History: Asthma, Fibromyalgia, GERD/Reflux, Osteoarthritis (OA), Skin Disorder Additional Past Medical History / Comment(s): Hx constipation, alternating diarrhea; CTS - wears noel braces, hx ITP, acne, Rt leg varicose veins. Current Rt inguinal hernia. History of Any Multi-Drug Resistant Organisms: None Reported Past Surgical History: Cholecystectomy, Hernia Repair Additional Past Surgical History / Comment(s): D&C ,EGD,COLONOSCOPY, LEEP procedure to cervix, incisional hernia repair w/ mesh. Lt varicose vein procedure. Adi fundoplasty. Past Anesthesia/Blood Transfusion Reactions: Motion Sickness Additional Past Anesthesia/Blood Transfusion Reaction / Comment(s): no hx blood transfusion Smoking Status: Current every day smoker - Past Family History Father Family Medical History: Liver Disease Additional Family Medical History / Comment(s): Hep C Mother Family Medical History: Cancer, Deep Vein Thrombosis (DVT) Brother(s) Additional Family Medical History / Comment(s): Schizophrenia Medications and Allergies Home Medications Medication Instructions Recorded Confirmed Type Cyclobenzaprine [Flexeril] 10 mg PO TID PRN 12/09/15 09/10/19 History LORazepam [Ativan] 1 mg PO BID PRN 12/09/15 09/10/19 History Albuterol Inhaler [Ventolin Hfa 1 - 2 puff INHALATION Q6HR PRN 03/23/09/10/19 History Inhaler] Ibuprofen [Motrin] 400 - 800 mg PO Q6HR PRN 02/01/17 09/10/19 History Loratadine [Claritin] 10 mg PO DAILY 02/01/17 09/10/19 History Pedi Multivit No.25/Folic Acid 2 tab PO DAILY 05/03/19 09/10/19 History [Flintstones Multivit Chew Tab] Acetaminophen [Tylenol] 325 - 650 mg PO Q4H PRN 05/13/19 09/10/19 History Adapalene [Differin 0.1% Gel] 1 applic TOPICAL DAILY PRN 09/05/19 09/10/19 History Fluticasone Nasal [place] [Flonase 2 spr EA NOSTRIL DAILY 09/05/19 09/10/19 History Nasal [place]] Pseudoephedrine [Sudafed] 30 mg PO Q6H PRN 09/05/19 09/10/19 History Sulfacetamide Sodium 10% [place] 1 applic TOPICAL DAILY PRN 09/05/19 09/10/19 History Varenicline [Chantix Continuing 1 mg PO HS 09/05/19 09/10/19 History Pack] diphenhydrAMINE [Benadryl] 25 mg PO HS PRN 09/05/19 09/10/19 History Allergies Allergy/AdvReac Type Severity Reaction Status Date / Time artifical sweeteners AdvReac Vomiting Uncoded 09/10/19 08:01 Surgical - Exam - General well developed, well nourished, no distress - Eyes PERRL - ENT normal pinna - Neck no masses - Respiratory normal expansion - Cardiovascular Rhythm: regular - Abdomen Abdomen: soft, non tender Hernia: inguinal (Right) Assessment and Plan Assessment: Right inguinal hernia. We'll perform laparoscopic robotic-assisted repair.
[2019-09-10] MEDS: LACTATED RINGERS 1,000 ML IV SCH ×2 (08:37→08:38)
[2019-09-10] MEDS: ONDANSETRON 4 MG/2 ML VIAL IVP ONE ×2 (08:38→10:14)
[2019-09-10] MEDS ORDERED: fentaNYL (PF) 50 MCG/ML 2 ML AMP IV ONE ×2 (08:46)
[2019-09-10] MEDS ORDERED: fentaNYL (PF) 50 MCG/ML 2 ML AMP ONE (08:57)
[2019-09-10] MEDS ORDERED: PROPOFOL 10 MG/ML 20 ML VIAL IV ONE (08:57)
[2019-09-10] MEDS ORDERED: KETOROLAC 30 MG/ML 1 ML VIAL ONE (08:57)
[2019-09-10] MEDS ORDERED: ROCURONIUM BROMIDE 10 MG/ML 10 ML VIAL IV ONE (08:57)
[2019-09-10] MEDS ORDERED: DEXAMETHASONE SOD PHOSPHATE 4 MG/ML 1 ML VIAL ONE (08:57)
[2019-09-10] MEDS ORDERED: GLYCOPYRROLATE 0.2 MG/ML 2 ML VIAL ONE (08:57)
[2019-09-10] MEDS ORDERED: ROPIVACAINE 5 MG/ML 30 ML VIAL ONE (08:57)
[2019-09-10] MEDS ORDERED: NEOSTIGMINE 1 MG/ML 10 ML VIAL ONE (08:57)
[2019-09-10] MEDS ORDERED: LIDOCAINE 1% INJ 10MG/ML (20 ML MDV) ONE (08:57)
--- NOTE | 2019-09-10 09:01 | P.ANPRN ---
Procedure Note - Anesthesia - Nerve Block Performed Bilateral Transversus Abdominis Single Time Out Performed: Yes Date of Procedure: 09/10/19 Procedure Start Time: 08:45 Procedure Stop Time: 08:55 Location of Patient: PreOp Indication: Acute Post-Operative Pain, Requested by Surgeon Sedation Type: Sedate with meaningful contact maintained Preparation: Sterile Prep Position: Supine Catheter: None Needle Types: Pajunk Needle Gauge: 21 Ultrasound used to visualize needle placement: Yes Ultrasound used to observe medication spread: Yes Injectate: Other (see comment) (ROPIVACAINE 0.5% 12 CC + DECADRON 4MG + PFNS 8CC-- PER SIDE) Blood Aspirated: No Pain Paresthesia on Injection Noted: No Resistance on Injection: Normal Image Stored and Saved: Yes Events: Uneventful and Well Tolerated
[2019-09-10] MEDS ORDERED: BUPIVACAIN-EPI 0.25%-1:200,000 30 ML VIAL SQ ONE ×2 (09:25)
[2019-09-10 09:27] LABS: Basophils # (A) 0.1 k/uL (0-0.2); Basophils % (A) 2 %; Eosinophils # (A) 0.2 k/uL (0-0.7); Eosinophils % (A) 2 %; HCT 35.5 % (34.0-46.0); HGB 11.4 gm/dL (11.4-16.0); Lymphocytes # (A) 1.8 k/uL (1.0-4.8); Lymphocytes % (A) 26 %; MCV 87.2 fL (80.0-100.0); Monocytes # (A) 0.5 k/uL (0-1.0); Monocytes % (A) 7 %; Neutrophils # (A) 4.3 k/uL (1.3-7.7); Neutrophils % (A) 62 %; Platelet Count 266 k/uL (150-450); RBC 4.07 m/uL (3.80-5.40); RDW 14.8 % (11.5-15.5); WBC 6.9 k/uL (3.8-10.6)
[2019-09-10 10:05] VITALS: TEMP 97
--- NOTE | 2019-09-10 10:07 | P.OP ---
Date of Procedure: 09/10/19 Preoperative Diagnosis: Right inguinal hernia Postoperative Diagnosis: Right inguinal hernia Procedure(s) Performed: Laparoscopic robotic-assisted repair of right inguinal hernia Anesthesia: ZOE Surgeon: Forrest Florian Estimated Blood Loss (ml): 5 Pathology: none sent Condition: stable Disposition: PACU Description of Procedure: The patient's placed on the operating table in the supine position. The patient received general anesthesia. The patient's abdomen was prepped and draped in usual sterile fashion. The skin was anesthetized 1% local Xylocaine at the incision sites. Using an 11 blade a skin incision was made at the umbilicus. The fascia was grasped with a Jose Manuel and then the peritoneal cavity was entered with the Veress needle. Position of the Veress needle was confirmed with a positive drop test. After adequate insufflation a 5 mm trocar was placed into the peritoneal cavity. The Laparoscope was placed the peritoneal cavity. And a robotic 8 mm trocar was placed in the right lateral position and then another 8 mm robotic trochars placed in the left lateral position. The original 5 mm trocar was exchanged for a 12 mm trocar. The patient was placed in reverse Trendelenburg and then the patient was docked to the robot. Next the peritoneum over top of the hernia was incised and then using blunt and sharp dissection and electrocautery the hernia sac was dissected free from the floor of the inguinal canal. The hernia sac was completely reduced into the peritoneal cavity. The round ligament was divided. And then using the Pro pain management specialist mesh the hernia was repaired. The peritoneum was then sutured with 20V lock suture. The patient was then undocked the robot. The needle was withdrawn from the peritoneal cavity. The umbilical trocar site was closed with 0 Ethibond suture. The skin was closed interrupted 3-0 Monocryl suture. Dermabond dressing was applied. Patient was sent to recovery in stable condition.
[2019-09-10] MEDS: HYDROmorphone 0.5 MG/0.5 ML SYRINGE IVP PRN ×4 (10:10→10:29)
[2019-09-10] MEDS ORDERED: diphenhydrAMINE 50 MG/ML 1 ML VIAL IVP ONE (10:17)
[2019-09-10] MEDS ORDERED: HYDROcodone/APAP 5-325MG 1 EACH TAB PO ONE (11:15)
[2019-09-10 11:55] VITALS: BP 95/57; PULSE 70
== END 2019-09-10 12:38 | disposition home or self-care (01) ==
LOC: OR 07:39
PROVIDERS: ATTEND Surgery
DX: K40.90 Unilateral inguinal hernia, without obstruction or gangrene, not specified as recurrent (principal); J45.909 Unspecified asthma, uncomplicated; F17.210 Nicotine dependence, cigarettes, uncomplicated; F41.9 Anxiety disorder, unspecified; F31.9 Bipolar disorder, unspecified; K21.9 Gastro-esophageal reflux disease without esophagitis; M79.7 Fibromyalgia; I83.91 Asymptomatic varicose veins of right lower extremity; M19.90 Unspecified osteoarthritis, unspecified site; Z91.018 Allergy to other foods; Z79.899 Other long term (current) drug therapy; Z98.890 Other specified postprocedural states; Z90.49 Acquired absence of other specified parts of digestive tract; Z82.49 Family history of ischemic heart disease and other diseases of the circulatory system; Z81.8 Family history of other mental and behavioral disorders; Z83.1 Family history of other infectious and parasitic diseases
CPT/HCPCS: 81025; 64488; 85025; 49650; C1781; J2250; J1200; J1644; J1100 ×2; J2710; J2405; J2001; J3010; J1885; J2795; J2704; J1170

== ENCOUNTER → 2019-09-21 | Outpatient (CLI) | payer MEDICARE, OTHER ==
--- NOTE | 2019-09-21 14:48 | CT ---
EXAMINATION TYPE: CT chest wo con DATE OF EXAM: 09/21/2019 COMPARISON: Chest x-ray 08/08/2019 HISTORY: Cough and shortness of breath for [address] DLP: 104.7 mGycm. Automated Exposure Control for Dose Reduction was Utilized. TECHNIQUE: CT scan of the thorax is performed without IV contrast. FINDINGS: LUNGS: The lungs are grossly clear, there is no concerning parenchymal mass or nodule identified. T here is no pleural effusion or pneumothorax seen. The tracheobronchial tree is patent. MEDIASTINUM: Lack of IV contrast is noted to limit evaluation for mediastinal and especially hilar ad enopathy. There are no definitive greater than 1 cm hilar or mediastinal lymph nodes. No cardiomega ly or pericardial effusion is seen. OTHER: No additional significant abnormality is seen. Lack of contrast could compromise sensitivity. Postop changes are noted at the gastroesophageal junction level. Patient is post cholecystectomy. IMPRESSION: Postop changes in the abdomen.
== END | disposition home or self-care (01) ==
LOC: RADCTMAIN 12:57
PROVIDERS: ATTEND Family Medicine
DX: J92.9 Pleural plaque without asbestos (principal); Z80.1 Family history of malignant neoplasm of trachea, bronchus and lung; Z90.49 Acquired absence of other specified parts of digestive tract
CPT/HCPCS: 71250

== ENCOUNTER → 2020-08-06 | Outpatient (CLI) | payer MEDICARE, OTHER ==
--- NOTE | 2020-08-06 16:00 | US ---
EXAMINATION TYPE: US pelvic complete DATE OF EXAM: 08/06/2020 COMPARISON: 12/18/2018 CLINICAL HISTORY: 39-year-old female N93.8 Dysfunctional uterine bleeding,Z97.5. Pt states vaginal bl eeding x 2 months since having cervical procedure, IUD in place x 5 years TECHNIQUE: Transabdominal sonographic images of the pelvis were acquired. Date of LMP: Vaginal bleeding x 2 months FINDINGS: EXAM MEASUREMENTS: Uterus: 9.6 x 4.1 x 5.7 cm Endometrial Stripe: 1.0 cm Right Ovary: 7.0 x 5.7 x 4.8 cm Left Ovary: 2.2 x 2.0 x 2.6 cm 1. Uterus: Anteverted and otherwise wnl, IUD in appropriate position within the uterine cavity. 2. Endometrium: wnl 3. Right Ovary: Complex cyst with some mural based nodularity, suspected retractile clot. The lesion measures 5.5 x 3.9 x 5.9 cm 4. Left Ovary: wnl, follicles 5. Bilateral Adnexa: wnl 6. Posterior cul-de-sac: wnl IMPRESSION: 1. IUD appropriately positioned within the uterine cavity. 2. Right ovary enlarged secondary to a 5.9 cm complex cystic lesion, suspected hemorrhagic cyst with retractile clot. Follow-up in 6-8 weeks to ensure involution.
== END | disposition home or self-care (01) ==
LOC: RADUSWWP 14:10
PROVIDERS: ATTEND Obstetrics & Gynecology
DX: N83.291 Other ovarian cyst, right side (principal); Z97.5 Presence of (intrauterine) contraceptive device
CPT/HCPCS: 76856

== ENCOUNTER → 2020-08-11 | Outpatient (CLI) | payer MEDICARE, OTHER ==
--- NOTE | 2020-08-12 13:59 | MM ---
Reason for exam: screening (asymptomatic). History: Family history of breast cancer in paternal grandmother at age 60. Physical Findings: A clinical breast exam by your physician is recommended on an annual basis and results should be correlated with mammographic findings. MG 3D Screening Mammo W/Cad Bilateral CC and MLO view(s) were taken. No prior studies available for comparison. The breast tissue is extremely dense which could obscure a lesion on mammography. There is no discrete abnormality. ASSESSMENT: Negative, BI-RAD 1 RECOMMENDATION: Routine screening mammogram of both breasts in 1 year.
== END | disposition home or self-care (01) ==
LOC: RADMAMWWP 12:04
PROVIDERS: ATTEND Obstetrics & Gynecology
DX: Z12.31 Encounter for screening mammogram for malignant neoplasm of breast (principal)
CPT/HCPCS: 77063; 77067

== ENCOUNTER → 2020-09-21 | Outpatient (CLI) | payer MEDICARE, OTHER ==
--- NOTE | 2020-09-21 16:52 | US ---
EXAMINATION TYPE: US transvaginal DATE OF EXAM: 09/21/2020 COMPARISON: NONE CLINICAL HISTORY: R ovarian cyst N83.201. F/U ovarian cyst. Patient bleeding since June. TECHNIQUE: Transvaginal (TV). Date of LMP: 06/04/20 EXAM MEASUREMENTS: Uterus: 9.6 x 4.9 x 4.9 cm Endometrial Stripe: 0.8 cm Right Ovary: 3.5 x 2.1 x 1.9 cm Left Ovary: 2.4 x 1.8 x 2.0 cm 1. Uterus: Anteverted, wnl, IUD in place 2. Endometrium: wnl 3. Right Ovary: wnl 4. Left Ovary: wnl 5. Bilateral Adnexa: wnl 6. Posterior cul-de-sac: wnl Color flow noted to the ovaries on Doppler IMPRESSION: Intrauterine contraceptive device present along the endometrium. Follicles are associated with the ovaries.
== END | disposition home or self-care (01) ==
LOC: RADUSWWP 16:12
PROVIDERS: ATTEND Obstetrics & Gynecology
DX: N63.0 Unspecified lump in unspecified breast (principal); Z97.5 Presence of (intrauterine) contraceptive device
CPT/HCPCS: 76830

== ENCOUNTER → 2021-03-11 | Outpatient (CLI) | payer MEDICARE, OTHER ==
--- NOTE | 2021-03-11 20:06 | CT ---
EXAMINATION TYPE: CT abdomen pelvis wo con DATE OF EXAM: 03/11/2021 HISTORY: H/O hernia repair x1 year ago pt states she is having pain again CT DLP: 198.3 mGycm. Automated Exposure Control for Dose Reduction was Utilized. TECHNIQUE: CT scan of the abdomen and pelvis is performed without oral or IV contrast. COMPARISON: CT abdomen and pelvis April 11, 2019 FINDINGS: Within the limitations of a non-contrast study, the following observations are made. LUNG BASES: No significant abnormality is appreciated. LIVER/GB: Liver size stable and upper limits of normal. Cholecystectomy clips redemonstrated. PANCREAS: No significant abnormality is seen. SPLEEN: No significant abnormality is seen. ADRENALS: No significant abnormality is seen. KIDNEYS: There is 1 to 2 mm nonobstructing calculus lower pole left kidney coronal image 38 on curren t study. In retrospect this was present on prior study and stable. No hydronephrosis currently. BOWEL: Patient has little intra-abdominal fat along with lack of enteric contrast makes evaluation of bowel suboptimal. No suspicious dilatation. GENITAL ORGANS: Anteverted uterus with central metallic IUD. LYMPH NODES: No greater than 1cm abdominal or pelvic lymph nodes are appreciated. OSSEOUS STRUCTURES: No significant abnormality is seen. OTHER: No significant additional abnormality is seen. IMPRESSION: No recurrent hernia or new acute finding identified.
== END | disposition home or self-care (01) ==
LOC: RADCTMAIN 15:57
PROVIDERS: ATTEND Family Medicine
DX: R10.9 Unspecified abdominal pain (principal); Z98.890 Other specified postprocedural states
CPT/HCPCS: 74176

== ENCOUNTER 2022-01-06 09:36 | Day surgery (SDC) | payer MEDICARE, OTHER ==
[2022-01-04 10:33] VITALS: BMI 16.1
[~2022-01-06 09:36] MED LIST changes: -DEXAMETHASONE SOD PHOSPHATE 10 MG/ML 1 ML VIAL IV ONE; -HEPARIN SODIUM,PORCINE 5,000 UNIT/ML 1 ML VIAL SQ ONE; +LACTATED RINGERS 1,000 ML IV SCH; +LIDOCAINE 1% (10MG/ML) FOR IV START INTRADERMA PRN; -LIDOCAINE 1% 20 ML VIAL (10MG/ML) FOR IV START INTRADERMA PRN; -MIDAZOLAM 2 MG/2 ML VIAL IV PRN; -SCOPOLAMINE 1.5MG/72HR PATCH TRANSDERM ONE
[2022-01-06 10:49] VITALS: RESP 18; TEMP 97.8
[2022-01-06] MEDS ORDERED: LACTATED RINGERS 1,000 ML IV ONE (10:51)
[2022-01-06] MEDS ORDERED: LIDOCAINE 2% INJ 20 MG/ML (2 ML VIAL) ONE (11:17)
[2022-01-06] MEDS ORDERED: PROPOFOL 10 MG/ML 20 ML VIAL IV ONE (11:17)
--- NOTE | 2022-01-06 11:21 | P.GSHP ---
History of Present Illness H&P Date: 01/06/22 Chief Complaint: GERD Is a 41-year-old female presents today for EGD. She's had issues with GERD. Past Medical History Past Medical History: Asthma, Fibromyalgia, GERD/Reflux, Osteoarthritis (OA), Skin Disorder Additional Past Medical History / Comment(s): Hx constipation, alternating diarrhea; CTS - wears noel braces, hx ITP, acne, Rt leg varicose veins. Current Rt inguinal hernia. SEASONAL ALLERGIES, ABD PAIN WITH MEALS, IRON IS LOW-HX OF IRON INFUSIONS History of Any Multi-Drug Resistant Organisms: None Reported Past Surgical History: Cholecystectomy, Hernia Repair Additional Past Surgical History / Comment(s): D&C ,EGD,COLONOSCOPY, LEEP procedure to cervix, incisional/INGUINAL hernia repair w/ mesh. Lt varicose vein procedure. Adi fundoplasty. Past Anesthesia/Blood Transfusion Reactions: Motion Sickness Additional Past Anesthesia/Blood Transfusion Reaction / Comment(s): no hx blood transfusion Smoking Status: Current every day smoker - Past Family History Father Family Medical History: Liver Disease Additional Family Medical History / Comment(s): Hep C Mother Family Medical History: Cancer, Deep Vein Thrombosis (DVT) Brother(s) Additional Family Medical History / Comment(s): Schizophrenia Medications and Allergies Home Medications Medication Instructions Recorded Confirmed Type Cyclobenzaprine [Flexeril] 10 mg PO TID PRN 12/09/15 01/06/22 History LORazepam [Ativan] 1 mg PO BID PRN 12/09/15 01/06/22 History Albuterol Inhaler (Mhu) [Ventolin 1 - 2 puff INHALATION Q6HR PRN 03/23/16 01/06/22 History Hfa Inhaler (Mhu)] Ibuprofen [Motrin] 400 - 800 mg PO Q6HR PRN 02/01/17 01/04/22 History Loratadine [Claritin] 10 mg PO DAILY 02/01/17 01/06/22 History Pedi Multivit No.25/Folic Acid 2 tab PO DAILY 05/03/19 01/06/22 History [Flintstones Multivit Chew Tab] Acetaminophen [Tylenol] 325 - 650 mg PO Q4H PRN 05/13/19 01/06/22 History Adapalene [Differin 0.1% Gel] 1 applic TOPICAL DAILY PRN 09/05/19 01/06/22 History Fluticasone Nasal [place] [Flonase 2 spr EA NOSTRIL DAILY 09/05/19 01/06/22 History Nasal [place]] Pseudoephedrine [Sudafed] 30 mg PO Q6H PRN 09/05/19 01/06/22 History Sulfacetamide Sodium 10% [place] 1 applic TOPICAL DAILY PRN 09/05/19 01/06/22 History diphenhydrAMINE [Benadryl] 25 mg PO HS PRN 09/05/19 01/06/22 History Docusate [Colace] 100 mg PO BID #20 capsule 09/10/19 01/06/22 Rx HYDROcodone/APAP 5-325MG [[place] 1 tab PO Q6HR PRN #10 tab 09/10/19 01/06/22 Rx 5-325] Ubrogepant [Ubrelvy] 100 mg PO DIRECTED PRN 01/04/22 01/06/22 History Allergies Allergy/AdvReac Type Severity Reaction Status Date / Time artifical sweeteners AdvReac Vomiting Uncoded 01/04/22 10:21 Surgical - Exam Vital Signs Temp Pulse Resp BP Pulse Ox 97.8 F 70 18 104/65 98 01/06/22 10:40 01/06/22 10:40 01/06/22 10:40 01/06/22 10:40 01/06/22 10:40 - General well developed, well nourished, no distress - Eyes PERRL - ENT normal pinna - Neck no masses - Respiratory normal expansion - Cardiovascular Rhythm: regular - Abdomen Abdomen: soft, non tender Assessment and Plan Assessment: GERD. We'll perform EGD.
--- NOTE | 2022-01-06 11:29 | P.OP ---
Date of Procedure: 01/06/22 Preoperative Diagnosis: GERD Postoperative Diagnosis: Antral gastritis Procedure(s) Performed: EGD Anesthesia: MAC Surgeon: Forrest Florian Pathology: other (Antrum) Condition: stable Disposition: PACU Description of Procedure: The patient's placed on the endoscopy table in the lateral position. She rece ived IV sedation. The gastroscope placed oropharynx passed in the esophagus and stomach. Scope was then placed through the pylorus. The first and second portion of the duodenum appeared normal. Scope was then brought back the antrum this was mildly inflamed. A biopsies performed. The scope was then retroflexed and the remainder the stomach appeared normal. The GE junction was at 47 is. There is no significant hiatal hernia. The cell esophagus appeared normal. Scope summer back the proximal esophagus this appeared normal. Scope withdrawn for patient.
[2022-01-06 11:59] VITALS: BP 104/64; PULSE 77
== END 2022-01-06 12:26 | disposition home or self-care (01) ==
LOC: ORWHC2ENDO 09:36
PROVIDERS: ATTEND Surgery
DX: K29.50 Unspecified chronic gastritis without bleeding (principal); M79.7 Fibromyalgia; M19.90 Unspecified osteoarthritis, unspecified site; J45.909 Unspecified asthma, uncomplicated; F17.200 Nicotine dependence, unspecified, uncomplicated; K21.9 Gastro-esophageal reflux disease without esophagitis; F31.9 Bipolar disorder, unspecified; F41.0 Panic disorder [episodic paroxysmal anxiety]; Z79.1 Long term (current) use of non-steroidal anti-inflammatories (NSAID); Z90.49 Acquired absence of other specified parts of digestive tract; Z88.8 Allergy status to other drugs, medicaments and biological substances; Z79.899 Other long term (current) drug therapy
CPT/HCPCS: 43239; 81025; 88305; J2704; J2001

== ENCOUNTER → 2023-02-10 | Outpatient (CLI) | payer MEDICARE, OTHER ==
--- NOTE | 2023-02-10 13:12 | US ---
EXAMINATION TYPE: US pelvic complete DATE OF EXAM: 02/10/2023 COMPARISON: US CLINICAL INDICATION: Female, 42 years old with history of R10.2 PELVIC PAIN; Pt states heavy menses a nd low iron/ IUD in place x 8 years TECHNIQUE: Transabdominal (TA). Transabdominal sonographic images of the pelvis were acquired. Date of LMP: 02/06/2023 EXAM MEASUREMENTS: Uterus: 8.7 x 4.8 x 4.9 cm Endometrial Stripe: 0.8 cm Right Ovary: 3.4 x 2.4 x 2.1 cm Left Ovary: 2.8 x 2.4 x 2.4 cm 1. Uterus: Anteverted wnl, IUD in correct location 2. Endometrium: wnl 3. Right Ovary: wnl 4. Left Ovary: wnl 5. Bilateral Adnexa: wnl 6. Posterior cul-de-sac: wnl IMPRESSION: 1. IUD in appropriate position. 2. No evidence for acute process.
--- NOTE | 2023-02-13 19:05 | MM ---
Reason for Exam: Screening (asymptomatic). Last mammogram was performed 2 year(s) and 6 month(s) ago. Patient History: Menarche at age 13. First Full-Term at age 26. Premenopausal. Patient has history of breast feeding. Paternal grandmother had breast cancer, age 60. Maternal cousin had breast cancer under age 50. Maternal cousin had breast cancer under age 50. Maternal cousin had breast cancer at or over age 50. Last menstrual period: 02/06/2023 Risk Values: [place] 5 year model risk: 0.7%. NCI Lifetime model risk: 10.9%. Prior Study Comparison: 08/11/2020 Bilateral Screening Mammogram, [facility]. Tissue Density: The breast tissue is extremely dense which could obscure a lesion on mammography. Findings: Analyzed By CAD. Pattern appears symmetrical and stable. No significant interval change. No suspicious groups of microcalcifications, spiculated or lobular masses, architectural distortion or other secondary signs of malignancy are mammographically apparent. Overall Assessment: Negative, BI-RAD 1 Management: Screening Mammogram of both breasts in 1 year. A negative mammogram report should not preclude additional follow up of suspicious palpable abnormalities. Patient should continue monthly self breast exam. A clinical breast exam by your physician is recommended on an annual basis and results should be correlated with mammographic findings. Electronically signed and approved by: Kamlesh Kingston D.O. Radiologis
== END | disposition home or self-care (01) ==
LOC: RADUSWWP 12:06
PROVIDERS: ATTEND Obstetrics & Gynecology
DX: Z12.31 Encounter for screening mammogram for malignant neoplasm of breast (principal); R10.2 Pelvic and perineal pain; Z78.0 Asymptomatic menopausal state; Z80.3 Family history of malignant neoplasm of breast
CPT/HCPCS: 76856; 77063; 77067

== ENCOUNTER 2023-04-13 07:55 | Day surgery (SDC) | payer MEDICARE, OTHER ==
[2023-04-13 08:42] VITALS: TEMP 98
[2023-04-13] MEDS ORDERED: LACTATED RINGERS 1,000 ML IV ONE ×2 (08:55)
[2023-04-13] MEDS ORDERED: LIDOCAINE 2% INJ 20 MG/ML (2 ML VIAL) ONE (09:02)
[2023-04-13] MEDS ORDERED: PROPOFOL 10 MG/ML 20 ML VIAL IV ONE (09:02)
--- NOTE | 2023-04-13 09:05 | P.GSHP ---
History of Present Illness H&P Date: 04/13/23 Chief Complaint: Anemia, GERD, history of colon polyps Is a 42-year-old female presents today for EGD and colonoscopy patient's issues with heartburn GERD and anemia. She has history of colon polyps. She will stay for EGD and colonoscopy. Past Medical History Past Medical History: Asthma, Fibromyalgia, GERD/Reflux, Osteoarthritis (OA), Skin Disorder Additional Past Medical History / Comment(s): Low iron recently with iron infusion. Hx constipation, alternating diarrhea; CTS - wears noel braces, hx ITP, acne, SEASONAL ALLERGIES, ABD PAIN WITH MEALS History of Any Multi-Drug Resistant Organisms: None Reported Past Surgical History: Cholecystectomy, Hernia Repair Additional Past Surgical History / Comment(s): D&C, IUD, EGD, COLONOSCOPY, LEEP procedure to cervix, incisional/INGUINAL hernia repair w/ mesh. Lt varicose vein procedure. Adi fundoplasty, wisdom teeth extraction. Past Anesthesia/Blood Transfusion Reactions: Motion Sickness Additional Past Anesthesia/Blood Transfusion Reaction / Comment(s): no hx blood transfusion Smoking Status: Former smoker - Past Family History Father Family Medical History: Liver Disease Additional Family Medical History / Comment(s): Hep C Mother Family Medical History: Cancer, Deep Vein Thrombosis (DVT) Additional Family Medical History / Comment(s): Lung cancer, bilateral leg DVTs Brother(s) Additional Family Medical History / Comment(s): Schizophrenia Medications and Allergies Home Medications Medication Instructions Recorded Confirmed Type Cyclobenzaprine [Flexeril] 10 mg PO DAILY PRN 12/09/15 04/13/23 History LORazepam [Ativan] 1 mg PO BID PRN 12/09/15 04/13/23 History Albuterol Inhaler [Ventolin Hfa 1 - 2 puff INHALATION Q6HR PRN 03/23/16 04/13/23 History Inhaler] Ibuprofen [Motrin] 400 - 800 mg PO Q6HR PRN 02/01/17 04/13/23 History Loratadine [Claritin] 10 mg PO QAM 02/01/17 04/13/23 History Pedi Multivit No.25/Folic Acid 2 tab PO QAM 05/03/19 04/13/23 History [Flintstones Multivit Chew Tab] Acetaminophen [Tylenol] 325 - 650 mg PO Q4H PRN 05/13/19 04/13/23 History Adapalene [Differin 0.1% Gel] 1 applic TOPICAL DAILY PRN 09/05/19 04/13/23 History Fluticasone Nasal [place] [Flonase 2 spr EA NOSTRIL HS 09/05/19 04/13/23 History Nasal [place]] Pseudoephedrine [Sudafed] 30 mg PO Q6H PRN 09/05/19 04/13/23 History Sulfacetamide Sodium 10% [place] 1 applic TOPICAL DAILY PRN 09/05/19 04/13/23 History diphenhydrAMINE [Benadryl] 25 mg PO HS PRN 09/05/19 04/13/23 History Ubrogepant [Ubrelvy] 100 mg PO DIRECTED PRN 01/04/22 04/13/23 History Docusate [Colace] 100 mg PO BID PRN 04/07/23 04/13/23 History Feraheme 510 mg IV DAILY 04/07/23 04/13/23 History HYDROcodone/APAP 7.5-325MG [[place] 1 tab PO Q6HR PRN 04/13/23 04/13/23 History 7.5-325] Allergies Allergy/AdvReac Type Severity Reaction Status Date / Time acesulfame Allergy Nausea & Verified 04/13/23 08:59 Vomiting & Diarrhea aspartame Allergy Nausea & Verified 04/13/23 08:59 Vomiting & Diarrhea saccharin Allergy Nausea & Verified 04/13/23 09:00 Vomiting & Diarrhea artifical sweeteners AdvReac Vomiting Uncoded 04/07/23 15:12 Surgical - Exam Vital Signs Temp Pulse Resp BP Pulse Ox 98.0 F 83 18 102/62 99 04/13/23 08:40 04/13/23 08:40 04/13/23 08:40 04/13/23 08:40 04/13/23 08:40 - General well developed, well nourished, no distress - Eyes PERRL - ENT normal pinna - Neck no masses - Respiratory normal expansion - Cardiovascular Rhythm: regular - Abdomen Abdomen: soft, non tender Assessment and Plan Assessment: Livan anemia, for possible EGD and colonoscopy.
--- NOTE | 2023-04-13 09:19 | P.OP ---
Date of Procedure: 04/13/23 Preoperative Diagnosis: GERD Anemia Colon polyps Postoperative Diagnosis: Antral gastritis Mild esophagitis Normal colonoscopy Procedure(s) Performed: EGD Colonoscopy Anesthesia: MAC Surgeon: Forrest Florian Pathology: other (Antrum, esophagus) Condition: stable Disposition: PACU Description of Procedure: The patient's placed on the endoscopy table in the lateral position. She received IV sedation. The gastro-/oropharynx passed in the esophagus into the stomach. Scope was then placed through the pylorus. The first and second portion of the duodenum appeared normal. Scope was then brought back the antrum this. Mildly inflamed. A biopsies performed. The scope was retroflexed and remainder the stomach appeared normal. There is no significant hiatal hernia. The GE junction was at 47 is. The distal esophagus appeared mildly inflamed. A biopsies performed. The proximal esophagus appeared normal. Scope was then withdrawn for patient. Next digital rectal exam was performed. This revealed no abnormalities. Flexible colonoscope was then placed patient anus and passed throughout the entire colon. The ileocecal valve was visualized. The cecum, ascending and transverse colon appeared normal. The descending and sigmoid colon appeared normal. Scope was then brought back the rectum and this was normal. The scope was withdrawn for patient.
[2023-04-13 09:26] VITALS: RESP 16
[2023-04-13 09:46] VITALS: BP 103/67; PULSE 65
== END 2023-04-13 10:02 | disposition home or self-care (01) ==
LOC: ORWHC2ENDO 07:55
PROVIDERS: ATTEND Surgery
DX: K29.50 Unspecified chronic gastritis without bleeding (principal); D50.9 Iron deficiency anemia, unspecified; J45.909 Unspecified asthma, uncomplicated; M79.7 Fibromyalgia; M19.91 Primary osteoarthritis, unspecified site; K21.9 Gastro-esophageal reflux disease without esophagitis; Z90.49 Acquired absence of other specified parts of digestive tract; Z87.891 Personal history of nicotine dependence; Z79.899 Other long term (current) drug therapy
CPT/HCPCS: 81025; 88305; 45378; 43239; J2704; J2001

== ENCOUNTER → 2023-09-06 | Outpatient (CLI) | payer MEDICARE, OTHER ==
--- NOTE | 2023-09-06 14:44 | XR ---
EXAMINATION TYPE: XR chest 2V DATE OF EXAM: 09/06/2023 11:37 AM CLINICAL INDICATION:Female, 43 years old with history of R05.9 Cough; [facility] COMPARISON: Chest radiographs from 08/08/2019 TECHNIQUE: XR chest 2V Frontal and lateral views of the chest. FINDINGS: Lungs/Pleura: There is no evidence of pleural effusion, focal consolidation, or pneumothorax. Pulmonary vascularity: Unremarkable. Heart/mediastinum: Cardiomediastinal silhouette is unremarkable. Musculoskeletal: No acute osseous pathology. IMPRESSION: No acute cardiopulmonary disease/process.
== END | disposition home or self-care (01) ==
LOC: RADXRMAIN 11:26
PROVIDERS: ATTEND Family Medicine
DX: R05.9 Cough, unspecified (principal)
CPT/HCPCS: 71046

== ENCOUNTER 2024-01-07 02:04 | Emergency (ER) | payer MEDICARE, OTHER ==
[2024-01-07 02:43] VITALS: BP 112/77; PULSE 76; RESP 18; TEMP 98.6
--- NOTE | 2024-01-07 03:08 | ED ---
General Adult HPI - General Chief complaint: Wound/Laceration Stated complaint: Cut wound on right hand Time Seen by Provider: 01/07/24 02:34 Source: patient, RN notes reviewed Mode of arrival: ambulatory Limitations: no limitations - History of Present Illness Initial comments: 43-year-old female presented to the ED with a chief complaint of cat scratch. Patient reports that her cat has problems with anxiety. States that the cat got anxious and scratched her right hand. Cat is up-to-date on vaccinations. Patient reports her tetanus status is unknown. No other injuries at this time. No other complaints. - Related Data Home Medications Medication Instructions Recorded Confirmed Cyclobenzaprine [Flexeril] 10 mg PO DAILY PRN 12/09/15 04/13/23 LORazepam [Ativan] 1 mg PO BID PRN 12/09/15 04/13/23 Albuterol Inhaler [Ventolin Hfa 1 - 2 puff INHALATION Q6HR PRN 03/23/16 04/13/23 Inhaler] Ibuprofen [Motrin] 400 - 800 mg PO Q6HR PRN 02/01/17 04/13/23 Loratadine [Claritin] 10 mg PO QAM 02/01/17 04/13/23 Pedi Multivit No.25/Folic Acid 2 tab PO QAM 05/03/19 04/13/23 [Flintstones Multivit Chew Tab] Acetaminophen [Tylenol] 325 - 650 mg PO Q4H PRN 05/13/19 04/13/23 Adapalene [Differin 0.1% Gel] 1 applic TOPICAL DAILY PRN 09/05/19 04/13/23 Fluticasone Nasal [place] [Flonase 2 spr EA NOSTRIL HS 09/05/19 04/13/23 Nasal [place]] Pseudoephedrine [Sudafed] 30 mg PO Q6H PRN 09/05/19 04/13/23 Sulfacetamide Sodium 10% [place] 1 applic TOPICAL DAILY PRN 09/05/19 04/13/23 diphenhydrAMINE [Benadryl] 25 mg PO HS PRN 09/05/19 04/13/23 Ubrogepant [Ubrelvy] 100 mg PO DIRECTED PRN 01/04/22 04/13/23 Docusate [Colace] 100 mg PO BID PRN 04/07/23 04/13/23 Feraheme 510 mg IV DAILY 04/07/23 04/13/23 HYDROcodone/APAP 7.5-325MG [[place] 1 tab PO Q6HR PRN 04/13/23 04/13/23 7.5-325] Previous Rx's Medication Instructions Recorded Azithromycin [Zithromax Z Pack] 0 tab PO DIRECTED #6 tab 01/07/24 Allergies Allergy/AdvReac Type Severity Reaction Status Date / Time acesulfame Allergy Nausea & Verified 01/07/24 02:24 Vomiting & Diarrhea aspartame Allergy Nausea & Verified 01/07/24 02:24 Vomiting & Diarrhea saccharin Allergy Nausea & Verified 01/07/24 02:24 Vomiting & Diarrhea artifical sweeteners AdvReac Vomiting Uncoded 01/07/24 02:24 Review of Systems ROS Statement: Those systems with pertinent positive or pertinent negative responses have been documented in the HPI. ROS Other: All systems not noted in ROS Statement are negative. Past Medical History Past Medical History: Asthma, Fibromyalgia, GERD/Reflux, Osteoarthritis (OA), Skin Disorder Additional Past Medical History / Comment(s): Hx constipation, alternating diarrhea; CTS - wears noel braces, hx ITP, acne, Rt leg varicose veins. Current Rt inguinal hernia. SEASONAL ALLERGIES, ABD PAIN WITH MEALS, IRON IS LOW-HX OF IRON INFUSIONS History of Any Multi-Drug Resistant Organisms: None Reported Past Surgical History: Cholecystectomy, Hernia Repair Additional Past Surgical History / Comment(s): D&C ,EGD,COLONOSCOPY, LEEP procedure to cervix, incisional/INGUINAL hernia repair w/ mesh. Lt varicose vein procedure. Adi fundoplasty. Past Anesthesia/Blood Transfusion Reactions: Motion Sickness Additional Past Anesthesia/Blood Transfusion Reaction / Comment(s): no hx blood transfusion Past Psychological History: Anxiety, Bipolar, Depression, Panic Disorder Smoking Status: Former smoker Past Alcohol Use History: None Reported Past Drug Use History: None Reported - Past Family History Father Family Medical History: Liver Disease Additional Family Medical History / Comment(s): Hep C Mother Family Medical History: Cancer, Deep Vein Thrombosis (DVT) Additional Family Medical History / Comment(s): Lung cancer, bilateral leg DVTs Brother(s) Additional Family Medical History / Comment(s): Schizophrenia General Exam Limitations: no limitations General appearance: alert, in no apparent distress Eye exam: Present: normal appearance Neck exam: Present: normal inspection Respiratory exam: Present: normal lung sounds bilaterally Cardiovascular Exam: Present: regular rate GI/Abdominal exam: Present: soft Extremities exam: Present: other (Approximately 2 cm laceration on the palmar surface of right hand proximal to the MCP joint of the fifth digit.) Neurological exam: Present: alert, oriented X3 Skin exam: Present: warm, dry Course Vital Signs 01/07/24 02:22 Temperature 98.6 F Pulse Rate 76 Respiratory 18 Rate Blood Pressure 112/77 O2 Sat by Pulse 98 Oximetry Medical Decision Making - Medical Decision Making Was pt. sent in by a medical professional or institution (, PA, SCOURING MACHINE OPERATOR, urgent care, hospital, or penitentiary...) When possible be specific @ -No Did you speak to anyone other than the patient for history (EMS, parent, family, police, friend...)? What history was obtained from this source @ -No Did you review nursing and triage notes (agree or disagree)? Why? @ -I reviewed and agree with nursing and triage notes Were old charts reviewed (outside hosp., previous admission, EMS record, old EKG, old radiological studies, urgent care reports/EKG's, penitentiary records)? Report findings @ -No old charts were reviewed Differential Diagnosis (chest pain, altered mental status, abdominal pain women, abdominal pain men, vaginal bleeding, weakness, fever, dyspnea, syncope, headache, dizziness, GI bleed, back pain, seizure, CVA, palpatations, mental health, musculoskeletal)? @ -Differential Musculoskeletal Muscular strain, contusion, ligament sprain, fracture, arthritis, septic arthritis, bursitis, cellulitis, muscle spasm, nerve compression, DVT, arterial occlusion, herpes zoster, electrolyte abnormality, tumor.... This is not meant to be in all inclusive list EKG interpreted by me (3pts min.). @ -None X-rays interpreted by me (1pt min.). @ -None done CT interpreted by me (1pt min.). @ -None done U/S interpreted by me (1pt. min.). @ -None done What testing was considered but not performed or refused? (CT, X-rays, U/S, labs)? Why? @ -None What meds were considered but not given or refused? Why? @ -None Did you discuss the management of the patient with other professionals (professionals i.e. , PA, SCOURING MACHINE OPERATOR, lab, RT, psych nurse, social media marketing specialist, spinning lathe operator, teacher, space operations officer, patient case manager)? Give summary @ -No Was smoking cessation discussed for >3mins.? @ -No Was critical care preformed (if so, how long)? @ -No Were there social determinants of health that impacted care today? How? (Homelessness, low income, unemployed, alcoholism, drug addiction, transportation, low edu. Level, literacy, decrease access to med. care, longterm, rehab)? @ -No Was there de-escalation of care discussed even if they declined (Discuss DNR or withdrawal of care, Hospice)? DNR status @ -No What co-morbidities impacted this encounter? (DM, HTN, Smoking, COPD, CAD, Cancer, CVA, ARF, Chemo, Hep., AIDS, mental health diagnosis, sleep apnea, morbid obesity)? @ -None Was patient admitted / discharged? Hospital course, mention meds given and route, prescriptions, significant lab abnormalities, going to OR and other pertinent info. @ -Discharge 43-year-old female presenting to the ED with complaints of cat scratch to her right hand. Cat is up-to-date on vaccinations. Patient's tetanus status was updated. Wound was irrigated copiously with solution of iodine/water. Afterwards, covered with antibiotic ointment and a bandage. Wound left to heal via secondary intention. Discharged home in stable condition with prescription for azithromycin. Discussed strict return precautions with patient who verbalized agreement. Undiagnosed new problem with uncertain prognosis? @ -No Drug Therapy requiring intensive monitoring for toxicity (Heparin, Nitro, Insulin, Cardizem)? @ -No Were any procedures done? @ -No Diagnosis/symptom? @ -Cat scratch Acute, or Chronic, or Acute on Chronic? @ -Acute Uncomplicated (without systemic symptoms) or Complicated (systemic symptoms)? @ -Uncomplicated Side effects of treatment? @ -No Exacerbation, Progression, or Severe Exacerbation? @ -No Poses a threat to life or bodily function? How? (Chest pain, [place], [place], pneumonia, PE, COPD, DKA, ARF, appy, cholecystitis, CVA, Diverticulitis, Homicidal, Suicidal, threat to staff... and all critical care pts) @ -No Disposition Clinical Impression: Cat scratch Disposition: HOME SELF-CARE Condition: Good Instructions (If sedation given, give patient instructions): Acute Wounds (ED), Cat Scratch Disease (ED) Additional Instructions: Please return to the Emergency Department if symptoms worsen or any other concerns. Please follow-up with your primary care provider. Prescriptions: Azithromycin [Zithromax Z Pack] 0 tab PO DIRECTED #6 tab Is patient prescribed a controlled substance at d/c from ED?: No Referrals: Heath Levy DO [Primary Care Provider] - 1-2 days Time of Disposition: 03:15
[2024-01-07] MEDS: DIPH,PERTUS(ACELL)TETVAC-LF 0.5 ML VIAL IM ONE (03:17)
[2024-01-07] MEDS: BACITRACIN OINT 1 EACH PACKET TOPICAL ONE (03:18)
== END 2024-01-07 03:23 | disposition home or self-care (01) ==
LOC: EC 02:04
DX: S61.411A Laceration without foreign body of right hand, initial encounter (principal); Z87.891 Personal history of nicotine dependence; Z88.8 Allergy status to other drugs, medicaments and biological substances; Z23 Encounter for immunization; W55.01XA Bitten by cat, initial encounter
CPT/HCPCS: 90471; 90715; 99282